=== PATIENT | male | born 1940 | race Caucasian/White ===

== ENCOUNTER 2018-08-03 13:41 | Observation (INO) ==
[2018-08-03 17:45] LABS: PT Patient Result 32.8 SECS
[2018-08-03 17:48] LABS: Calcium 8.5 MG/DL (8.5-10.1); Osmolality,Calculated 285.4 MOS/KG (273-304)
[2018-08-03 17:53] LABS: Risk Ratio 2.44; VLDL CHOLESTEROL 23.6 MG/DL
[2018-08-03] MEDS ORDERED: WARFARIN 5 MG TABLET PO SCH (18:00)
[2018-08-03] MEDS: CARVEDILOL 6.25 MG TABLET PO SCH (18:18)
[2018-08-03] MEDS ORDERED: SIMVASTATIN 10 MG TABLET PO SCH (21:00)
[2018-08-04 05:05] LABS: Calcium 8.4 MG/DL (8.5-10.1); Osmolality,Calculated 288.1 MOS/KG (273-304)
[2018-08-04] MEDS ORDERED: ACETAMINOPHEN 325 MG TABLET PO PRN (09:23)
[2018-08-04] MEDS ORDERED: DOCUSATE SODIUM 100 MG CAPSULE PO PRN (09:23)
[2018-08-04] MEDS ORDERED: ONDANSETRON 4 MG/2 ML VIAL IV PRN (09:23)
[2018-08-04] MEDS: CARVEDILOL 6.25 MG TABLET PO SCH ×2 (09:34→18:04)
[2018-08-04 10:23] LABS: Folate > 24.0 NG/ML (5.4-24.0); Vitamin B12 401 PG/ML (211-911)
[2018-08-04 16:34] VITALS: BP 130/92
[2018-08-04] MEDS ORDERED: WARFARIN 7.5 MG TABLET PO SCH (18:00)
[2018-08-04] MEDS ORDERED: ASPIRIN EC 81 MG TABLET PO SCH (21:00)
[2018-08-05] MEDS ORDERED: CHOLECALCIFEROL 5,000 UNIT TABLET PO SCH (09:00)
[2018-08-05] MEDS ORDERED: PANTOPRAZOLE 40 MG TABLET PO SCH (09:00)
== END 2018-08-04 19:33 | disposition home or self-care (01) ==
LOC: N.4E
PROVIDERS: ADMIT Family Medicine; ATTEND Family Medicine

== ENCOUNTER 2019-04-12 07:41 | Inpatient (IN) ==
[2019-04-12 08:38] LABS: Basophils # 0.1 10*3/uL (0.0-0.2); Basophils % 0.9 % (0.0-0.8); Eosinophils # 0.4 10*3/uL (0.0-0.87); Eosinophils % 3.8 % (0.00-10.9); Hematocrit 50.6 VOL% (42.0-52.0); Hemoglobin 16.8 GM/DL (14.0-18.0); Immature Granulocytes % 0.4 %; Immature Granulocytes Absolute 0.04 #; Lymphocytes # 2.3 10*3/uL (1.4-4.0); Lymphocytes % 22.7 % (21.2-54.2); Mean Corpuscular HGB Conc 33.2 GM/DL (32-36); Mean Corpuscular Volume 99.2 FL (87-102); Mean Platelet Volume 10.2 FL (9.6-12.0); Monocytes % 8.4 % (1.7-12.7); Neutrophils % 63.8 % (38.7-73.9); Platelet Count 195 T/CUMM (130-400); Red Cell Distribution Width 13.4 % (9.3-17.3); White Blood Count 10.1 T/CUMM (4-12)
[2019-04-12 08:43] LABS: Amorphous Crystals,Urine Occasional /HPF (Few); Apearance,Urine CLEAR (Clear); Bilirubin,Urine Negative (Negative); Blood, Urine Negative (Negative); Glucose,Urine (UA) Negative (Negative); Hyaline Casts,Urine 1 /LPF (0-3); Ketones,Urine Negative (Negative); Mucus,Urine Occasional /LPF (Occasional); Nitrite,Urine Negative (Negative); Protein,Urine Negative; RBC,Urine 1 /HPF (0-4); Urine Color Yellow (Yellow); Urine Urobilinogen < 2.0 EU/DL (0.2-1.0); WBC,Urine <1 /HPF (0-6)
[2019-04-12 08:52] LABS: INR 4.4
[2019-04-12 08:55] LABS: PT Patient Result 46.7 SECS (9.6-12.2)
[2019-04-12 08:57] LABS: Albumin 3.2 G/DL (3.4-5.0); Bilirubin,Total 0.7 MG/DL (0.2-1.0); Calcium 8.9 MG/DL (8.5-10.1); Osmolality,Calculated 282.4 MOS/KG (273-304); Total Protein 6.8 G/DL (6.4-8.3)
[2019-04-12] MEDS ORDERED: DOCUSATE SODIUM 100 MG CAPSULE PO PRN (10:20)
[2019-04-12] MEDS ORDERED: ONDANSETRON 4 MG/2 ML VIAL IV PRN (10:20)
[2019-04-12 11:13] LABS: Risk Ratio 2.69; Thyroid Stimulating Hormone 1.84 uIU/ml (0.358-3.74); VLDL CHOLESTEROL 18.6 MG/DL
[2019-04-12] MEDS: ENOXAPARIN 40 MG/0.4 ML SYRINGE SUBCUT SCH ×2 (13:15→13:20)
[2019-04-12] MEDS: ACETAMINOPHEN 325 MG TABLET PO PRN (13:15)
[2019-04-12] MEDS: SODIUM CHLORIDE 0.9% 1,000 ML IV SCH (13:17)
[2019-04-12] MEDS: MIDODRINE 5 MG TABLET PO SCH ×2 (17:26→21:18)
[2019-04-12] MEDS: LEVOFLOXACIN INJ 500 MG in PREMIX 1 EACH IV SCH (17:27)
[2019-04-12] MEDS ORDERED: carvediloL 3.125 MG TABLET PO SCH (21:00)
[2019-04-12] MEDS: SIMVASTATIN 10 MG TABLET PO SCH (21:18)
[2019-04-12] MEDS: ASPIRIN EC 81 MG TABLET PO SCH (21:18)
[2019-04-13] MEDS: SODIUM CHLORIDE 0.9% 1,000 ML IV SCH (02:37)
[2019-04-13 04:44] LABS: Basophils # 0.1 10*3/uL (0.0-0.2); Basophils % 0.6 % (0.0-0.8); Eosinophils # 0.4 10*3/uL (0.0-0.87); Eosinophils % 3.8 % (0.00-10.9); Hematocrit 45.3 VOL% (42.0-52.0); Hemoglobin 15.1 GM/DL (14.0-18.0); Immature Granulocytes % 0.4 %; Immature Granulocytes Absolute 0.04 #; Lymphocytes # 2.9 10*3/uL (1.4-4.0); Lymphocytes % 26.2 % (21.2-54.2); Mean Corpuscular HGB Conc 33.3 GM/DL (32-36); Mean Corpuscular Volume 99.1 FL (87-102); Mean Platelet Volume 10.8 FL (9.6-12.0); Monocytes % 11.7 % (1.7-12.7); Neutrophils % 57.3 % (38.7-73.9); Platelet Count 173 T/CUMM (130-400); Red Blood Count 4.57 MC/CUMM (3.8-5.5); Red Cell Distribution Width 13.8 % (9.3-17.3)
[2019-04-13 05:09] LABS: Calcium 8.5 MG/DL (8.5-10.1); Osmolality,Calculated 282.5 MOS/KG (273-304)
[2019-04-13] MEDS: ENOXAPARIN 40 MG/0.4 ML SYRINGE SUBCUT SCH (09:39)
[2019-04-13] MEDS: CHOLECALCIFEROL 5,000 UNIT TABLET PO SCH (09:39)
[2019-04-13] MEDS: PANTOPRAZOLE 40 MG TABLET PO SCH (09:39)
[2019-04-13] MEDS: MIDODRINE 5 MG TABLET PO SCH ×3 (09:48→21:11)
[2019-04-13] MEDS: ACETAMINOPHEN 325 MG TABLET PO PRN (13:53)
[2019-04-13] MEDS: carvediloL 3.125 MG TABLET PO SCH (16:30)
[2019-04-13] MEDS: LEVOFLOXACIN INJ 500 MG in PREMIX 1 EACH IV SCH (16:34)
[2019-04-13] MEDS ORDERED: traMADol 50 MG TABLET PO PRN (18:30)
[2019-04-13] MEDS: SIMVASTATIN 10 MG TABLET PO SCH (21:11)
[2019-04-13] MEDS: ASPIRIN EC 81 MG TABLET PO SCH (21:11)
[2019-04-13] MEDS: TAMSULOSIN 0.4 MG CAPSULE PO SCH (21:11)
[2019-04-14] MEDS: MORPHINE 4 MG/1 ML VIAL IV PRN ×2 (03:30→09:54)
[2019-04-14] MEDS: SODIUM CHLORIDE 0.9% 1,000 ML IV SCH ×3 (03:31→16:55)
[2019-04-14 05:54] LABS: Basophils # 0.1 10*3/uL (0.0-0.2); Basophils % 0.7 % (0.0-0.8); Eosinophils # 0.4 10*3/uL (0.0-0.87); Eosinophils % 3.7 % (0.00-10.9); Hematocrit 44.9 VOL% (42.0-52.0); Hemoglobin 14.9 GM/DL (14.0-18.0); Immature Granulocytes % 0.5 %; Immature Granulocytes Absolute 0.05 #; Lymphocytes # 2.6 10*3/uL (1.4-4.0); Lymphocytes % 24.3 % (21.2-54.2); Mean Corpuscular HGB Conc 33.2 GM/DL (32-36); Mean Corpuscular Volume 99.8 FL (87-102); Mean Platelet Volume 10.8 FL (9.6-12.0); Monocytes % 12.6 % (1.7-12.7); Neutrophils % 58.2 % (38.7-73.9); Platelet Count 172 T/CUMM (130-400); Red Cell Distribution Width 13.7 % (9.3-17.3); White Blood Count 10.7 T/CUMM (4-12)
[2019-04-14 06:06] LABS: Calcium 8.4 MG/DL (8.5-10.1); Osmolality,Calculated 278.8 MOS/KG (273-304)
[2019-04-14 06:27] LABS: PT Patient Result 21.3 SECS (9.6-12.2)
[2019-04-14] MEDS: MIDODRINE 5 MG TABLET PO SCH ×3 (08:40→20:55)
[2019-04-14] MEDS: CHOLECALCIFEROL 5,000 UNIT TABLET PO SCH (08:40)
[2019-04-14] MEDS: PANTOPRAZOLE 40 MG TABLET PO SCH (08:41)
[2019-04-14] MEDS: ENOXAPARIN 40 MG/0.4 ML SYRINGE SUBCUT SCH (09:56)
[2019-04-14] MEDS: LEVOFLOXACIN INJ 500 MG in PREMIX 1 EACH IV SCH (15:47)
[2019-04-14] MEDS: carvediloL 3.125 MG TABLET PO SCH (16:48)
[2019-04-14] MEDS: BISOPROLOL 5 MG TABLET PO SCH ×2 (18:29→20:55)
[2019-04-14] MEDS: ASPIRIN EC 81 MG TABLET PO SCH (20:55)
[2019-04-14] MEDS: ACETAMINOPHEN 325 MG TABLET PO PRN (20:55)
[2019-04-14] MEDS: SIMVASTATIN 10 MG TABLET PO SCH (20:55)
[2019-04-14] MEDS: FLUDROCORTISONE 0.1 MG TABLET PO SCH (20:55)
[2019-04-14] MEDS: traMADol 50 MG TABLET PO PRN (21:09)
[2019-04-14] MEDS: TAMSULOSIN 0.4 MG CAPSULE PO SCH (21:36)
[2019-04-15 05:27] LABS: Basophils % 0.2 % (0.0-0.8); Eosinophils % 0.1 % (0.00-10.9); Hematocrit 43.4 VOL% (42.0-52.0); Hemoglobin 14.3 GM/DL (14.0-18.0); Immature Granulocytes % 0.6 %; Immature Granulocytes Absolute 0.07 #; Lymphocytes # 1.9 10*3/uL (1.4-4.0); Lymphocytes % 15.6 % (21.2-54.2); Mean Corpuscular HGB Conc 32.9 GM/DL (32-36); Mean Corpuscular Volume 98.6 FL (87-102); Mean Platelet Volume 10.8 FL (9.6-12.0); Monocytes % 15.8 % (1.7-12.7); Neutrophils % 67.7 % (38.7-73.9); Platelet Count 166 T/CUMM (130-400); Red Cell Distribution Width 13.6 % (9.3-17.3); White Blood Count 12.2 T/CUMM (4-12)
[2019-04-15 05:35] LABS: INR 1.5; PT Patient Result 16.3 SECS (9.6-12.2)
[2019-04-15 05:56] LABS: Atypical Lymphocytes Few; Band Neutrophils 1 % (0-10); Hypochromasia 1+; Lymphocytes 12 % (20-55); Ovalocytes Slight; Segmented Neutrophils 74 % (50-85); Total Cells Counted 100
[2019-04-15 05:57] LABS: Microcytosis Slight; Platelet Estimate Adequate
[2019-04-15 06:20] LABS: Calcium 8.5 MG/DL (8.5-10.1); Osmolality,Calculated 271.2 MOS/KG (273-304)
[2019-04-15] MEDS: SODIUM CHLORIDE 0.9% 1,000 ML IV SCH ×2 (06:21→21:31)
[2019-04-15] MEDS: BISOPROLOL 5 MG TABLET PO SCH ×2 (08:45→21:29)
[2019-04-15] MEDS: CHOLECALCIFEROL 5,000 UNIT TABLET PO SCH (08:45)
[2019-04-15] MEDS: MIDODRINE 5 MG TABLET PO SCH ×3 (08:45→21:27)
[2019-04-15] MEDS: PANTOPRAZOLE 40 MG TABLET PO SCH (08:45)
[2019-04-15] MEDS: FLUDROCORTISONE 0.1 MG TABLET PO SCH ×2 (08:45→21:28)
[2019-04-15] MEDS: ENOXAPARIN 40 MG/0.4 ML SYRINGE SUBCUT SCH (11:36)
[2019-04-15] MEDS: traMADol 50 MG TABLET PO PRN ×2 (13:58→21:28)
[2019-04-15] MEDS: ACETAMINOPHEN 325 MG TABLET PO PRN (16:31)
[2019-04-15] MEDS: LEVOFLOXACIN INJ 500 MG in PREMIX 1 EACH IV SCH (16:31)
[2019-04-15] MEDS ORDERED: WARFARIN 7.5 MG TABLET PO SCH (18:00)
[2019-04-15] MEDS: TAMSULOSIN 0.4 MG CAPSULE PO SCH (21:28)
[2019-04-15] MEDS: ASPIRIN EC 81 MG TABLET PO SCH (21:28)
[2019-04-15] MEDS: SIMVASTATIN 10 MG TABLET PO SCH (21:28)
[2019-04-16 04:18] LABS: Apearance,Urine CLEAR (Clear); Bilirubin,Urine Negative (Negative); Blood, Urine Small mg/dL (Negative); Glucose,Urine (UA) Negative (Negative); Ketones,Urine Negative (Negative); Mucus,Urine Occasional /LPF (Occasional); Nitrite,Urine Negative (Negative); Protein,Urine Negative; RBC,Urine 3 /HPF (0-4); Urine Color Yellow (Yellow); Urine Specific Gravity 1.013 (1.001-1.035); Urine Urobilinogen < 2.0 EU/DL (0.2-1.0); WBC,Urine 2 /HPF (0-6)
[2019-04-16 05:41] LABS: Basophils % 0.2 % (0.0-0.8); Eosinophils # 0.1 10*3/uL (0.0-0.87); Eosinophils % 0.6 % (0.00-10.9); Immature Granulocytes % 0.4 %; Immature Granulocytes Absolute 0.04 #; Lymphocytes # 1.9 10*3/uL (1.4-4.0); Lymphocytes % 18.5 % (21.2-54.2); Mean Corpuscular HGB Conc 33.3 GM/DL (32-36); Mean Platelet Volume 11.2 FL (9.6-12.0); Monocytes % 14.2 % (1.7-12.7); Neutrophils % 66.1 % (38.7-73.9); Platelet Count 164 T/CUMM (130-400); Red Blood Count 3.94 MC/CUMM (3.8-5.5); Red Cell Distribution Width 13.6 % (9.3-17.3); White Blood Count 10.4 T/CUMM (4-12)
[2019-04-16 06:00] LABS: Calcium 8.2 MG/DL (8.5-10.1); Osmolality,Calculated 269.4 MOS/KG (273-304)
[2019-04-16] MEDS: traMADol 50 MG TABLET PO PRN (06:09)
[2019-04-16] MEDS: BISOPROLOL 5 MG TABLET PO SCH (10:00)
[2019-04-16] MEDS: MIDODRINE 5 MG TABLET PO SCH (10:00)
[2019-04-16] MEDS: CHOLECALCIFEROL 5,000 UNIT TABLET PO SCH (10:01)
[2019-04-16] MEDS: FLUDROCORTISONE 0.1 MG TABLET PO SCH (10:01)
[2019-04-16] MEDS: PANTOPRAZOLE 40 MG TABLET PO SCH (10:01)
[2019-04-16] MEDS: ENOXAPARIN 40 MG/0.4 ML SYRINGE SUBCUT SCH ×2 (10:01→10:07)
[2019-04-16 12:40] VITALS: BP 110/64
[2019-04-19] MEDS ORDERED: WARFARIN 5 MG TABLET PO SCH (18:00)
== END 2019-04-16 13:27 | disposition swing bed (61) | DRG 312 ==
LOC: EDBD → EDUNIT# → N.EDINP 07:41 → N.ED 07:41 → N.TELEN 10:43
PROVIDERS: ADMIT Hospitalist; ATTEND Hospitalist

== ENCOUNTER 2019-12-27 09:33 | Observation (INO) ==
[2019-12-27 10:38] LABS: Basophils # 0.1 10*3/uL (0.0-0.2); Basophils % 0.6 % (0.0-0.8); Eosinophils # 0.1 10*3/uL (0.0-0.87); Eosinophils % 1.4 % (0.00-10.9); Hematocrit 43.8 VOL% (42.0-52.0); Hemoglobin 14.9 GM/DL (14.0-18.0); Immature Granulocytes % 0.1 %; Immature Granulocytes Absolute 0.01 #; Lymphocytes # 2.5 10*3/uL (1.4-4.0); Lymphocytes % 29.1 % (21.2-54.2); Mean Corpuscular Volume 95.8 FL (87-102); Mean Platelet Volume 10.4 FL (9.6-12.0); Monocytes % 8.9 % (1.7-12.7); Neutrophils % 59.9 % (38.7-73.9); Platelet Count 232 T/CUMM (130-400); Red Blood Count 4.57 MC/CUMM (3.8-5.5); Red Cell Distribution Width 13.7 % (9.3-17.3); White Blood Count 8.7 T/CUMM (4-12)
[2019-12-27 11:05] LABS: Albumin 3.2 G/DL (3.4-5.0); Bilirubin,Total 0.5 MG/DL (0.2-1.0); Calcium 8.7 MG/DL (8.5-10.1); Osmolality,Calculated 284.3 MOS/KG (273-304); Total Protein 6.6 G/DL (6.4-8.3)
[2019-12-27 12:50] LABS: Bacteria,Urine Occasional /HPF (Few); Bilirubin,Urine Negative (Negative); Blood, Urine Negative (Negative); Glucose,Urine (UA) Negative (Negative); Hyaline Casts,Urine 43 /LPF (0-3); Ketones,Urine Negative (Negative); Mucus,Urine Occasional /LPF (Occasional); Nitrite,Urine Negative (Negative); Protein,Urine Negative; Squamous Epithelial Cell,Urine Occasional /HPF (0-10); Urine Appearance CLEAR (Clear); Urine Color Yellow (Yellow); Urine Specific Gravity 1.014 (1.001-1.035); Urine Urobilinogen < 2.0 EU/DL (0.2-1.0)
[2019-12-27] MEDS ORDERED: DEXTROSE 50% 25 GM/50 ML VIAL IV PRN (13:29)
[2019-12-27] MEDS ORDERED: DOCUSATE SODIUM 100 MG CAPSULE PO PRN (13:29)
[2019-12-27] MEDS ORDERED: ACETAMINOPHEN 325 MG TABLET PO PRN (13:29)
[2019-12-27] MEDS ORDERED: GLUCAGON 1 MG VIAL IM PRN (13:29)
[2019-12-27] MEDS ORDERED: ASPIRIN EC 81 MG TABLET PO SCH (15:30)
[2019-12-27] MEDS: ENOXAPARIN 40 MG/0.4 ML SYRINGE SUBCUT SCH (15:42)
[2019-12-27] MEDS: SODIUM CHLORIDE 0.9% 1,000 ML IV SCH (15:43)
[2019-12-27 15:57] LABS: INR 4.2
[2019-12-27 16:17] LABS: Risk Ratio 3.03; Thyroid Stimulating Hormone 1.48 uIU/ml (0.358-3.74); VLDL CHOLESTEROL 18.8 MG/DL
[2019-12-27] MEDS ORDERED: POTASSIUM CHLORIDE 20 MEQ/15 ML UDCUP PO ONE (16:29)
[2019-12-27] MEDS ORDERED: FLUDROCORTISONE 0.1 MG TABLET PO ONE (16:32)
[2019-12-27 16:49] LABS: PT Patient Result 41.4 SECS (9.8-11.9)
[2019-12-27] MEDS ORDERED: ALFUZOSIN 10 MG TABLET PO SCH (21:00)
[2019-12-27] MEDS ORDERED: SIMVASTATIN 10 MG TABLET PO SCH (21:00)
[2019-12-27] MEDS: MIDODRINE 5 MG TABLET PO SCH (21:21)
[2019-12-27] MEDS: FLUDROCORTISONE 0.1 MG TABLET PO SCH (21:21)
[2019-12-28] MEDS: SODIUM CHLORIDE 0.9% 1,000 ML IV SCH (02:00)
[2019-12-28 05:55] LABS: INR 4.1; PT Patient Result 40.4 SECS (9.8-11.9)
[2019-12-28 06:08] LABS: Basophils # 0.1 10*3/uL (0.0-0.2); Basophils % 0.9 % (0.0-0.8); Calcium 8.5 MG/DL (8.5-10.1); Eosinophils # 0.3 10*3/uL (0.0-0.87); Eosinophils % 4.5 % (0.00-10.9); Hematocrit 40.2 VOL% (42.0-52.0); Hemoglobin 13.3 GM/DL (14.0-18.0); Immature Granulocytes % 0.1 %; Immature Granulocytes Absolute 0.01 #; Lymphocytes # 2.8 10*3/uL (1.4-4.0); Lymphocytes % 40.4 % (21.2-54.2); Mean Corpuscular HGB Conc 33.1 GM/DL (32-36); Mean Corpuscular Volume 96.9 FL (87-102); Monocytes % 10.3 % (1.7-12.7); Neutrophils % 43.8 % (38.7-73.9); Osmolality,Calculated 284.3 MOS/KG (273-304); Platelet Count 210 T/CUMM (130-400); Red Blood Count 4.15 MC/CUMM (3.8-5.5); Red Cell Distribution Width 14.2 % (9.3-17.3); White Blood Count 6.9 T/CUMM (4-12)
[2019-12-28 06:18] LABS: Calcium 8.3 MG/DL (8.5-10.1)
[2019-12-28] MEDS ORDERED: MULTIVITAMIN (CENTRUM) TABLET PO SCH (09:00)
[2019-12-28] MEDS ORDERED: CHOLECALCIFEROL 1,000 UNIT TABLET PO SCH (09:00)
[2019-12-28] MEDS ORDERED: ASCORBIC ACID 500 MG TABLET PO SCH (09:00)
[2019-12-28] MEDS: MIDODRINE 5 MG TABLET PO SCH ×2 (09:17→14:47)
[2019-12-28] MEDS: FLUDROCORTISONE 0.1 MG TABLET PO SCH (09:17)
[2019-12-28 12:58] VITALS: BP 134/92
[2019-12-28] MEDS: ENOXAPARIN 40 MG/0.4 ML SYRINGE SUBCUT SCH (14:48)
== END 2019-12-28 15:17 | disposition home or self-care (01) ==
LOC: N.ED 09:33 → N.EDINP 09:33 → N.TELES 15:13
PROVIDERS: ADMIT Internal Medicine; ATTEND Internal Medicine

== ENCOUNTER 2020-04-18 11:15 | Inpatient (IN) ==
[2020-04-18] MEDS ORDERED: SODIUM CHLORIDE 0.9% 1,000 ML IV STA (14:50)
[2020-04-18 15:20] LABS: Basophils % 0.1 % (0.0-0.8); Hematocrit 41.6 VOL% (42.0-52.0); Hemoglobin 13.9 GM/DL (14.0-18.0); Immature Granulocytes % 0.8 %; Immature Granulocytes Absolute 0.17 #; Lymphocytes # 1.1 10*3/uL (1.4-4.0); Lymphocytes % 5.4 % (21.2-54.2); Mean Corpuscular HGB Conc 33.4 GM/DL (32-36); Mean Corpuscular Volume 98.1 FL (87-102); Mean Platelet Volume 10.7 FL (9.6-12.0); Monocytes % 6.9 % (1.7-12.7); Neutrophils % 86.8 % (38.7-73.9); Platelet Count 207 T/CUMM (130-400); Red Blood Count 4.24 MC/CUMM (3.8-5.5); Red Cell Distribution Width 13.8 % (9.3-17.3); White Blood Count 21.1 T/CUMM (4-12)
[2020-04-18 15:42] LABS: Band Neutrophils 4 % (0-10); Lymphocytes 5 % (20-55); Platelet Estimate Normal; Segmented Neutrophils 87 % (50-85); Total Cells Counted 100
[2020-04-18 16:20] LABS: Risk Ratio 2.02; VLDL CHOLESTEROL 8.6 MG/DL
[2020-04-18] MEDS ORDERED: cefTRIAXone 1,000 MG in SYRINGE 1 EACH IV STA (16:29)
[2020-04-18] MEDS ORDERED: MAGNESIUM SULF RIDER 2 GM in PREMIX 1 EACH IV ONE (16:31)
[2020-04-18] MEDS: SODIUM CHLORIDE 0.9% 1,000 ML IV SCH (17:49)
[2020-04-19 00:49] LABS: Bacteria,Urine Moderate /HPF (Few); Bilirubin,Urine Negative (Negative); Blood, Urine Small mg/dL (Negative); Glucose,Urine (UA) Negative (Negative); Hyaline Casts,Urine 3 /LPF (0-3); Ketones,Urine Negative (Negative); Mucus,Urine Occasional /LPF (Occasional); Nitrite,Urine Positive (Negative); Protein,Urine Negative; RBC,Urine 5 /HPF (0-4); Sperm,Urine Occasional /HPF (Negative); Squamous Epithelial Cell,Urine Occasional /HPF (0-10); Urine Appearance CLOUDY (Clear); Urine Color Yellow (Yellow); Urine Specific Gravity 1.012 (1.001-1.035); Urine Urobilinogen < 2.0 EU/DL (0.2-1.0); WBC,Urine 334 /HPF (0-6)
[2020-04-19 06:02] LABS: Basophils # 0.1 10*3/uL (0.0-0.2); Basophils % 0.3 % (0.0-0.8); Eosinophils # 0.1 10*3/uL (0.0-0.87); Eosinophils % 0.5 % (0.00-10.9); Hematocrit 40.1 VOL% (42.0-52.0); Hemoglobin 13.3 GM/DL (14.0-18.0); Immature Granulocytes % 0.5 %; Immature Granulocytes Absolute 0.07 #; Lymphocytes # 1.9 10*3/uL (1.4-4.0); Lymphocytes % 12.8 % (21.2-54.2); Mean Corpuscular HGB Conc 33.2 GM/DL (32-36); Mean Platelet Volume 10.9 FL (9.6-12.0); Monocytes % 9.2 % (1.7-12.7); Neutrophils % 76.7 % (38.7-73.9); Platelet Count 195 T/CUMM (130-400); Red Blood Count 4.01 MC/CUMM (3.8-5.5); Red Cell Distribution Width 14.2 % (9.3-17.3); White Blood Count 14.8 T/CUMM (4-12)
[2020-04-19 06:32] LABS: Calcium 8.7 MG/DL (8.5-10.1); Osmolality,Calculated 283.3 MOS/KG (273-304); Potassium 4.3 MMOL/L (3.5-5.1)
[2020-04-19] MEDS: SODIUM CHLORIDE 0.9% 1,000 ML IV SCH (07:32)
[2020-04-19] MEDS ORDERED: CLOPIDOGREL 75 MG TABLET PO SCH (09:00)
[2020-04-19] MEDS: ACETAMINOPHEN 500 MG TABLET PO PRN (10:02)
[2020-04-19] MEDS: APIXABAN 5 MG TABLET PO SCH ×2 (10:02→21:25)
[2020-04-19] MEDS: ASPIRIN EC 81 MG TABLET PO SCH (10:02)
[2020-04-19] MEDS: FLUDROCORTISONE 0.1 MG TABLET PO SCH ×2 (10:03→21:24)
[2020-04-19] MEDS: cefTRIAXone 1,000 MG in SYRINGE 1 EACH IV SCH (10:06)
[2020-04-19] MEDS ORDERED: METOPROLOL TARTRATE 50 MG TABLET PO ONE (15:58)
[2020-04-19] MEDS ORDERED: METOPROLOL TARTRATE 50 MG TABLET PO SCH (16:00)
[2020-04-20 06:25] LABS: Basophils # 0.1 10*3/uL (0.0-0.2); Basophils % 0.4 % (0.0-0.8); Eosinophils # 0.1 10*3/uL (0.0-0.87); Hemoglobin 12.3 GM/DL (14.0-18.0); Immature Granulocytes % 0.6 %; Immature Granulocytes Absolute 0.08 #; Lymphocytes # 2.2 10*3/uL (1.4-4.0); Lymphocytes % 16.1 % (21.2-54.2); Mean Corpuscular HGB Conc 33.2 GM/DL (32-36); Mean Corpuscular Volume 99.2 FL (87-102); Mean Platelet Volume 11.5 FL (9.6-12.0); Monocytes % 10.4 % (1.7-12.7); Neutrophils % 71.5 % (38.7-73.9); Platelet Count 175 T/CUMM (130-400); Red Blood Count 3.73 MC/CUMM (3.8-5.5); Red Cell Distribution Width 14.1 % (9.3-17.3); White Blood Count 13.5 T/CUMM (4-12)
[2020-04-20 06:58] LABS: Albumin 2.4 G/DL (3.4-5.0); Bilirubin,Total 0.9 MG/DL (0.2-1.0); Calcium 8.4 MG/DL (8.5-10.1); Osmolality,Calculated 281.4 MOS/KG (273-304); Potassium 3.6 MMOL/L (3.5-5.1); Total Protein 6.2 G/DL (6.4-8.3)
[2020-04-20] MEDS: APIXABAN 5 MG TABLET PO SCH (08:55)
[2020-04-20] MEDS: FLUDROCORTISONE 0.1 MG TABLET PO SCH (08:55)
[2020-04-20] MEDS: cefTRIAXone 1,000 MG in SYRINGE 1 EACH IV SCH (08:55)
[2020-04-20] MEDS: CHOLECALCIFEROL 5,000 UNIT TABLET PO SCH (08:56)
[2020-04-20] MEDS: METOPROLOL TARTRATE 25 MG TABLET PO SCH (08:56)
[2020-04-20] MEDS: ACETAMINOPHEN 500 MG TABLET PO PRN ×2 (08:59→16:05)
[2020-04-20] MEDS ORDERED: ALBUTEROL/IPRATROPIUM 3 ML NEB RESP TX PRN (23:31)
[2020-04-21] MEDS: FLUDROCORTISONE 0.1 MG TABLET PO SCH ×2 (00:15→09:36)
[2020-04-21] MEDS: APIXABAN 5 MG TABLET PO SCH ×2 (00:15→09:36)
[2020-04-21] MEDS: METOPROLOL TARTRATE 25 MG TABLET PO SCH ×2 (00:15→09:37)
[2020-04-21 05:47] LABS: Basophils # 0.1 10*3/uL (0.0-0.2); Basophils % 0.5 % (0.0-0.8); Eosinophils # 0.4 10*3/uL (0.0-0.87); Eosinophils % 3.9 % (0.00-10.9); Hematocrit 38.4 VOL% (42.0-52.0); Hemoglobin 12.7 GM/DL (14.0-18.0); Immature Granulocytes % 0.4 %; Immature Granulocytes Absolute 0.04 #; Lymphocytes # 2.3 10*3/uL (1.4-4.0); Lymphocytes % 23.2 % (21.2-54.2); Mean Corpuscular HGB Conc 33.1 GM/DL (32-36); Mean Corpuscular Volume 99.5 FL (87-102); Mean Platelet Volume 11.5 FL (9.6-12.0); Monocytes % 8.7 % (1.7-12.7); Neutrophils % 63.3 % (38.7-73.9); Platelet Count 206 T/CUMM (130-400); Red Blood Count 3.86 MC/CUMM (3.8-5.5); Red Cell Distribution Width 13.9 % (9.3-17.3)
[2020-04-21 06:19] LABS: Albumin 2.3 G/DL (3.4-5.0); Bilirubin,Total 0.8 MG/DL (0.2-1.0); Calcium 8.7 MG/DL (8.5-10.1); Osmolality,Calculated 280.4 MOS/KG (273-304); Potassium 3.7 MMOL/L (3.5-5.1); Total Protein 6.3 G/DL (6.4-8.3)
[2020-04-21] MEDS: cefTRIAXone 1,000 MG in SYRINGE 1 EACH IV SCH (09:34)
[2020-04-21] MEDS: ASPIRIN EC 81 MG TABLET PO SCH (09:35)
[2020-04-21] MEDS: CHOLECALCIFEROL 5,000 UNIT TABLET PO SCH (09:37)
[2020-04-21 12:24] VITALS: BP 151/98
== END 2020-04-21 14:47 | disposition swing bed (61) | DRG 690 ==
LOC: EDUNIT# → EDBD → N.ED 11:15 → N.EDINP 15:53 → N.TELES 17:21
PROVIDERS: ADMIT Family Medicine; ATTEND Family Medicine

== ENCOUNTER 2020-09-19 05:25 | Inpatient (IN) ==
[2020-09-13 12:37] LABS: Basophils # 0.1 10*3/uL (0.0-0.2); Basophils % 0.9 % (0.0-0.8); Eosinophils # 0.3 10*3/uL (0.0-0.87); Eosinophils % 2.9 % (0.00-10.9); Hemoglobin 16.6 GM/DL (14.0-18.0); Immature Granulocytes % 0.3 %; Immature Granulocytes Absolute 0.03 #; Lymphocytes # 3.5 10*3/uL (1.4-4.0); Lymphocytes % 33.9 % (21.2-54.2); Mean Corpuscular HGB Conc 33.2 GM/DL (32-36); Mean Platelet Volume 11.2 FL (9.6-12.0); Monocytes % 9.1 % (1.7-12.7); Neutrophils % 52.9 % (38.7-73.9); Platelet Count 241 T/CUMM (130-400); Red Cell Distribution Width 13.7 % (9.3-17.3); White Blood Count 10.3 T/CUMM (4-12)
[2020-09-13 12:39] LABS: Bacteria,Urine Occasional /HPF (Few); Bilirubin,Urine Negative (Negative); Blood, Urine Negative (Negative); Calcium Oxalate Crystals,Urine Occasional /HPF (Few); Glucose,Urine (UA) Negative (Negative); Hyaline Casts,Urine 4 /LPF (0-3); Ketones,Urine Negative (Negative); Mucus,Urine Occasional /LPF (Occasional); Nitrite,Urine Negative (Negative); Protein,Urine Negative; Squamous Epithelial Cell,Urine Occasional /HPF (0-10); Urine Appearance CLEAR (Clear); Urine Color Yellow (Yellow); Urine Specific Gravity 1.015 (1.001-1.035); Urine Urobilinogen < 2.0 EU/DL (0.2-1.0)
[2020-09-13 13:04] LABS: Albumin 3.7 G/DL (3.4-5.0); Bilirubin,Total 0.5 MG/DL (0.20-1.00); Calcium 9.9 MG/DL (8.5-10.1); Osmolality,Calculated 281.5 MOS/KG (273-304); Potassium 4.9 MMOL/L (3.5-5.1)
[2020-09-19] MEDS ORDERED: ceFAZolin 2,000 MG/50 ML DUPLEX IV ONE (06:00)
[2020-09-19] MEDS ORDERED: VANCOMYCIN INJ 1,000 MG in SODIUM CHLORIDE 0.9% 250 ML IV ONE (06:00)
[2020-09-19] MEDS ORDERED: LACTATED RINGERS 1,000 ML IV SCH (06:00)
[2020-09-19 06:54] LABS: PT Patient Result 11.3 SECS (10.5-12.0); Partial Thromboplastin Time 25.3 SECS (23.9-33.8)
[2020-09-19] MEDS ORDERED: FAMOTIDINE 20 MG TABLET PO ONE (07:19)
[2020-09-19] MEDS ORDERED: ACETAMINOPHEN 500 MG TABLET PO ONE (07:20)
[2020-09-19] MEDS ORDERED: GABAPENTIN 400 MG CAPSULE PO ONE (07:20)
[2020-09-19] MEDS ORDERED: ROPIVACAINE 0.5% 30 ML VIAL ONE (09:03)
[2020-09-19] MEDS ORDERED: KETAMINE 500 MG/10 ML VIAL ONE (10:00)
[2020-09-19] MEDS ORDERED: DEXMEDETOMIDINE 200 MCG/2 ML VIAL ONE (10:00)
[2020-09-19] MEDS ORDERED: fentaNYL 100 MCG/2 ML VIAL ONE (10:56)
[2020-09-19] MEDS ORDERED: LIDOCAINE 2% 5 ML VIAL ONE (11:09)
[2020-09-19] MEDS ORDERED: propofoL 200 MG/20 ML VIAL IV ONE (11:09)
[2020-09-19] MEDS ORDERED: SEVOFLURANE 1 UNIT/15 MINUTE INH ONE ×6 (11:10→12:21)
[2020-09-19] MEDS ORDERED: ROCURONIUM 50 MG/5 ML VIAL IV ONE (11:10)
[2020-09-19] MEDS ORDERED: hydrALAZINE 20 MG/1 ML VIAL ONE (11:11)
[2020-09-19] MEDS ORDERED: SODIUM CHLORIDE 0.9% 1,000 ML IV ONE (11:26)
[2020-09-19] MEDS ORDERED: PHENYLEPHRINE 1 MG/10 ML SYRINGE IV ONE (11:26)
[2020-09-19] MEDS ORDERED: TRANEXAMIC ACID 1,000 MG/10 ML VIAL ONE (11:30)
[2020-09-19] MEDS ORDERED: GLYCOPYRROLATE 0.4 MG/2 ML VIAL ONE (11:54)
[2020-09-19] MEDS ORDERED: MAGNESIUM HYDROXIDE SUSP 30 ML UDCUP PO PRN (12:26)
[2020-09-19] MEDS ORDERED: ONDANSETRON 4 MG/2 ML VIAL IV PRN (12:26)
[2020-09-19] MEDS ORDERED: ZALEPLON 5 MG CAPSULE PO PRN (12:26)
[2020-09-19] MEDS ORDERED: diphenhydrAMINE CAP 25 MG CAPSULE PO PRN (12:26)
[2020-09-19] MEDS ORDERED: HYDROmorphone 2 MG/1 ML VIAL IV PRN ×2 (12:28)
[2020-09-19] MEDS ORDERED: hydrALAZINE 20 MG/1 ML VIAL IV PRN (13:16)
[2020-09-19] MEDS ORDERED: hydrALAZINE 20 MG/1 ML VIAL IV ONE (13:29)
[2020-09-19] MEDS: LACTATED RINGERS 1,000 ML IV SCH ×2 (14:58→21:09)
[2020-09-19] MEDS: MIDODRINE 5 MG TABLET PO SCH ×2 (16:33→20:06)
[2020-09-19] MEDS: ceFAZolin 2,000 MG/50 ML DUPLEX IV SCH (16:33)
[2020-09-19] MEDS: DOCUSATE SODIUM 100 MG CAPSULE PO SCH (20:54)
[2020-09-19] MEDS: FAMOTIDINE 20 MG TABLET PO SCH (20:54)
[2020-09-19] MEDS: FINASTERIDE 5 MG TABLET PO SCH (20:54)
[2020-09-19] MEDS: APIXABAN 2.5 MG TABLET PO SCH (20:54)
[2020-09-19] MEDS: METOPROLOL TARTRATE 25 MG TABLET PO SCH (21:09)
[2020-09-20] MEDS: ceFAZolin 2,000 MG/50 ML DUPLEX IV SCH (00:12)
[2020-09-20] MEDS: LACTATED RINGERS 1,000 ML IV SCH ×2 (00:12→07:22)
[2020-09-20 05:36] LABS: Basophils % 0.1 % (0.0-0.8); Hemoglobin 15.6 GM/DL (14.0-18.0); Immature Granulocytes % 0.6 %; Immature Granulocytes Absolute 0.08 #; Lymphocytes # 2.2 10*3/uL (1.4-4.0); Lymphocytes % 15.3 % (21.2-54.2); Mean Corpuscular HGB Conc 33.9 GM/DL (32-36); Mean Corpuscular Volume 97.5 FL (87-102); Mean Platelet Volume 10.9 FL (9.6-12.0); Monocytes % 8.9 % (1.7-12.7); Neutrophils % 75.1 % (38.7-73.9); Platelet Count 202 T/CUMM (130-400); Red Blood Count 4.72 MC/CUMM (3.8-5.5); Red Cell Distribution Width 13.8 % (9.3-17.3); White Blood Count 14.4 T/CUMM (4-12)
[2020-09-20 06:01] LABS: Calcium 8.9 MG/DL (8.5-10.1); Osmolality,Calculated 280.5 MOS/KG (273-304); Potassium 4.7 MMOL/L (3.5-5.1)
[2020-09-20 06:11] LABS: Risk Ratio 3.46; VLDL Cholesterol 13.2 MG/DL
[2020-09-20] MEDS: DOCUSATE SODIUM 100 MG CAPSULE PO SCH ×2 (09:30→21:52)
[2020-09-20] MEDS: MULTIVITAMIN (CENTRUM) TABLET PO SCH (09:30)
[2020-09-20] MEDS: CHOLECALCIFEROL 5,000 UNIT TABLET PO SCH (09:30)
[2020-09-20] MEDS: ASCORBIC ACID 500 MG TABLET PO SCH (09:30)
[2020-09-20] MEDS: MIDODRINE 5 MG TABLET PO SCH ×3 (09:31→21:53)
[2020-09-20] MEDS: APIXABAN 2.5 MG TABLET PO SCH ×2 (09:31→21:53)
[2020-09-20] MEDS: MAGNESIUM CHLORIDE 64 MG TABLET PO SCH (09:31)
[2020-09-20] MEDS: FAMOTIDINE 20 MG TABLET PO SCH ×2 (09:31→21:53)
[2020-09-20] MEDS: METOPROLOL TARTRATE 25 MG TABLET PO SCH ×3 (09:31→21:53)
[2020-09-20] MEDS: TAMSULOSIN 0.4 MG CAPSULE PO SCH ×2 (10:47→21:53)
[2020-09-20] MEDS: ASPIRIN EC 81 MG TABLET PO SCH (13:23)
[2020-09-20] MEDS: FINASTERIDE 5 MG TABLET PO SCH (21:53)
[2020-09-21 05:11] LABS: Basophils % 0.3 % (0.0-0.8); Eosinophils # 0.2 10*3/uL (0.0-0.87); Eosinophils % 1.4 % (0.00-10.9); Hematocrit 38.6 VOL% (42.0-52.0); Immature Granulocytes % 0.5 %; Immature Granulocytes Absolute 0.06 #; Lymphocytes # 2.3 10*3/uL (1.4-4.0); Lymphocytes % 19.3 % (21.2-54.2); Mean Corpuscular HGB Conc 34.7 GM/DL (32-36); Mean Corpuscular Volume 97.7 FL (87-102); Monocytes % 12.7 % (1.7-12.7); Neutrophils % 65.8 % (38.7-73.9); Red Blood Count 3.95 MC/CUMM (3.8-5.5); Red Cell Distribution Width 13.9 % (9.3-17.3); White Blood Count 11.8 T/CUMM (4-12)
[2020-09-21 05:14] LABS: Hemoglobin 13.4 GM/DL (14.0-18.0); Platelet Count 154 T/CUMM (130-400)
[2020-09-21] MEDS: FAMOTIDINE 20 MG TABLET PO SCH ×2 (08:58→20:16)
[2020-09-21] MEDS: ALFUZOSIN 10 MG TABLET PO SCH (08:58)
[2020-09-21] MEDS: CHOLECALCIFEROL 5,000 UNIT TABLET PO SCH (08:58)
[2020-09-21] MEDS: MAGNESIUM CHLORIDE 64 MG TABLET PO SCH (08:59)
[2020-09-21] MEDS: DOCUSATE SODIUM 100 MG CAPSULE PO SCH ×2 (08:59→20:16)
[2020-09-21] MEDS: APIXABAN 2.5 MG TABLET PO SCH ×2 (08:59→20:17)
[2020-09-21] MEDS: MULTIVITAMIN (CENTRUM) TABLET PO SCH (08:59)
[2020-09-21] MEDS: ASCORBIC ACID 500 MG TABLET PO SCH (08:59)
[2020-09-21] MEDS: MIDODRINE 5 MG TABLET PO SCH ×3 (09:03→20:16)
[2020-09-21] MEDS: METOPROLOL TARTRATE 25 MG TABLET PO SCH ×2 (09:10→20:17)
[2020-09-21] MEDS ORDERED: ACETAMINOPHEN 325 MG TABLET PO PRN ×2 (09:14)
[2020-09-21] MEDS: FINASTERIDE 5 MG TABLET PO SCH (20:16)
[2020-09-22 06:16] LABS: Basophils # 0.1 10*3/uL (0.0-0.2); Basophils % 0.5 % (0.0-0.8); Eosinophils # 0.2 10*3/uL (0.0-0.87); Eosinophils % 2.2 % (0.00-10.9); Hematocrit 37.6 VOL% (42.0-52.0); Hemoglobin 12.6 GM/DL (14.0-18.0); Immature Granulocytes % 0.6 %; Immature Granulocytes Absolute 0.06 #; Lymphocytes # 2.2 10*3/uL (1.4-4.0); Lymphocytes % 20.2 % (21.2-54.2); Mean Corpuscular HGB Conc 33.5 GM/DL (32-36); Mean Corpuscular Volume 99.2 FL (87-102); Mean Platelet Volume 11.1 FL (9.6-12.0); Monocytes % 12.2 % (1.7-12.7); Neutrophils % 64.3 % (38.7-73.9); Platelet Count 158 T/CUMM (130-400); Red Blood Count 3.79 MC/CUMM (3.8-5.5); White Blood Count 10.6 T/CUMM (4-12)
[2020-09-22] MEDS: DOCUSATE SODIUM 100 MG CAPSULE PO SCH ×2 (08:38→20:39)
[2020-09-22] MEDS: ASCORBIC ACID 500 MG TABLET PO SCH (08:38)
[2020-09-22] MEDS: MULTIVITAMIN (CENTRUM) TABLET PO SCH (08:38)
[2020-09-22] MEDS: APIXABAN 2.5 MG TABLET PO SCH ×2 (08:38→20:40)
[2020-09-22] MEDS: MAGNESIUM CHLORIDE 64 MG TABLET PO SCH (08:38)
[2020-09-22] MEDS: ALFUZOSIN 10 MG TABLET PO SCH (08:38)
[2020-09-22] MEDS: METOPROLOL TARTRATE 25 MG TABLET PO SCH ×3 (08:38→20:43)
[2020-09-22] MEDS: CHOLECALCIFEROL 5,000 UNIT TABLET PO SCH (08:38)
[2020-09-22] MEDS: MIDODRINE 5 MG TABLET PO SCH ×3 (08:39→20:39)
[2020-09-22] MEDS: FAMOTIDINE 20 MG TABLET PO SCH ×2 (09:58→20:40)
[2020-09-22] MEDS: ASPIRIN EC 81 MG TABLET PO SCH (14:06)
[2020-09-22] MEDS: FINASTERIDE 5 MG TABLET PO SCH (20:39)
[2020-09-22 20:42] VITALS: BP 139/89
== END 2020-09-22 21:50 | disposition swing bed (61) | DRG 470 ==
LOC: N.OR 05:25 → N.SDSINP 05:25 → N.3E 12:26
PROVIDERS: ADMIT Orthopaedic Surgery; ATTEND Orthopaedic Surgery